=== PATIENT | male | born 1975 | race Caucasian/White ===

== ENCOUNTER → 2020-10-22 | Day surgery (SDC) | payer OTHER ==
[~2020-10-22] VITALS: Ht 172.7 cm; Wt 78.9 kg
[~2020-10-22] MED LIST: ESCITALOPRAM OX20 MG PO
[2020-10-22 10:37] LABS: HEMOGLOBIN 15.4 gm/dl (14.0-17.5); RED BLOOD COUNT 5.01 M/UL (4.20-5.50); WHITE BLOOD COUNT 5.4 K/UL (4.5-11.0)
[2020-10-22 10:53] LABS: BUN/CREATININE RATIO 12 (0-10)
== END | disposition home or self-care (01) ==
LOC: OR 10-21 11:04
PROVIDERS: Orthopaedic Surgery
DX: S52.371A Galeazzi's fracture of right radius, initial encounter for closed fracture (principal); S52.611A Displaced fracture of right ulna styloid process, initial encounter for closed fracture; M25.331 Other instability, right wrist; V29.9XXA Motorcycle rider (driver) (passenger) injured in unspecified traffic accident, initial encounter; Z20.822 Contact with and (suspected) exposure to COVID-19
CPT/HCPCS: 36415; 73090; 76000; 80048; 85027; C1713; J0690; J1100; J2001; J2250; J2405; J2704; J2795; J3010; J7120; U0002